=== PATIENT | female | born 1995 | race Caucasian/White ===

== ENCOUNTER 2016-12-01 13:33 | Outpatient (CLI) | payer OTHER ==
[2016-12-02 12:01] LABS: CANDIDA SPECIES DNA PROBE NEGATIVE (NEGATIVE); GARDNERELLA VAGINALIS POSITIVE (NEGATIVE); TRICHOMONAS VAGINALIS NEGATIVE (NEGATIVE)
== END 2016-12-01 13:34 ==
LOC: LAB 13:33
PROVIDERS: ATTEND Family Medicine
DX: N89.8 Other specified noninflammatory disorders of vagina (principal); N88.8 Other specified noninflammatory disorders of cervix uteri; Z12.4 Encounter for screening for malignant neoplasm of cervix
CPT/HCPCS: 87480; 87491; 87510; 87591; 88148; G0143

== ENCOUNTER 2016-12-03 03:22 | Emergency (ER) | payer OTHER ==
[2016-12-03] MEDS ORDERED: PROMETHAZINE HCL 25 MG/ML VIAL ONE (03:36)
[2016-12-03] MEDS ORDERED: 0.9 % SODIUM CHLORIDE 1,000 ML IV ONE ×3 (03:37→04:44)
[2016-12-03] MEDS ORDERED: PROMETHAZINE HCL 25 MG/ML VIAL IM ONE (03:37)
[2016-12-03] MEDS ORDERED: KETOROLAC TROMETHAMINE 30 MG/1ML VIAL ONE (04:05)
[2016-12-03] MEDS ORDERED: KETOROLAC TROMETHAMINE 30 MG/1ML VIAL IVP ONE (04:05)
--- NOTE | 2016-12-03 04:15 | ED Physician Documentation ---
General Adult - HISTORIAN Historian: patient - HPI Stated Complaint: N/V Chief Complaint: General Adult Further Comments: yes (20 year old female patient presents from [facility] with c/o nausea, vomiting and pain all over. Patient reports 2 year history of injecting Herion. Recently treated for Trich and Chlamydia. Admitted on 2016, last use on Wednesday.) - ROS CONST: no problems EYES/ENT: none CVS/RESP: none GI/: vomiting, nausea MS/SKIN/LYMPH: other ("hurts all over") NEURO/PSYCH: headache - PAST HX Past History: other (heroin abuse, STD) Allergies/Adverse Reactions: Allergies Allergy/AdvReac Type Severity Reaction Status Date / Time No Known Allergies Allergy Unverified 12/03/16 03:26 Home Medications: Ambulatory Orders Medication Instructions Recorded Buprenorphine HCl/Naloxone HCl 1 each SL AM 12/03/16 [Suboxone 8 mg-2 mg Sl Film] Buprenorphine HCl/Naloxone HCl 6 mg SL PM 12/03/16 [Suboxone 8 mg-2 mg Sl Film] Cyclobenzaprine HCl 10 mg PO TID PRN 12/03/16 Metronidazole [Metronidazole] 500 mg PO BID 12/03/16 Ondansetron HCl/Pf [Zofran 4 mg/2 4 mg IM Q6 PRN 12/03/16 ml] - SOCIAL HX Smoking History: cigarettes Drug Use: heroin - FAMILY HX Family History: No - VITAL SIGNS Vital Signs: Vital Signs Temp Pulse Resp BP Pulse Ox 98.2 F 78 18 132/82 100 12/03/16 03:22 12/03/16 03:22 12/03/16 03:22 12/03/16 03:22 12/03/16 03:22 - REVIEWED ASSESSMENTS Nursing Assessment Reviewed: Yes Vitals Reviewed: Yes Progress - Progress Progress: Extremely difficult IV start. [address] in left foot by myself. 0430 Patient sleeping on stretcher after promethazine, toradol and NS. Lab results reviewed. VS stable, discharged back to [facility] ED Results Lab/Radiology - Orders Orders: ED Orders Category Date Time Status Place IV Lock 1T Care 12/03/16 03:38 Active CBC PLATELETS NO DIFF Routine Lab 12/03/16 04:00 Received CMP [CMP] Routine Lab 12/03/16 04:00 Received 0.9 % Sodium Chloride [Normal Saline] 1,000 ml Med 12/03/16 03:37 Discontinued IV .STK-MED 0.9 % Sodium Chloride [Normal Saline] 1,000 ml Med 12/03/16 03:37 Active IV Q1H Ketorolac Tromethamine [Toradol] Med 12/03/16 04:05 Discontinued 30 mg .ROUTE .STK-MED ONE Promethazine HCl [Phenergan] Med 12/03/16 03:36 Discontinued 25 mg .ROUTE .STK-MED ONE Promethazine HCl [Phenergan] Med 12/03/16 03:37 Discontinued 25 mg IM NOW ONE General Adult Physical Exam - PHYSICAL EXAM GENERAL APPEARANCE: moderate distress EENT: eye inspection normal, FABIO RESPIRATORY: no resp distress, chest non-tender, breath sounds normal CVS: reg rate & rhythm, heart sounds normal, equal pulses, no murmur, no gallop , PMI nml, no JVD, no friction rub, 24 ABDOMEN: soft, no organomegaly, normal bowel sounds, no abdominal bruit, no distension SKIN: warm/dry, normal color, other (track jones on bilateral arms, bilateral feet, bilateral breasts and chest wall. ) EXTREMITIES: non-tender, normal range of motion, no evidence of injury, no edema , J, [employer] NEURO: oriented X3, CN's nml as tested, motor nml, sensation nml, depressed mood /affect Discharge Clincal Impression: Heroin abuse Nausea & vomiting Qualifiers: Vomiting type: unspecified Vomiting Intractability: non-intractable Qualified Code(s): R11.2 - Nausea with vomiting, unspecified Referrals: Primary Doctor,No [Primary Care Provider] - 2 Days Additional Instructions: Diet: Clear liquids Sprite/7-up Juices apple, white grape Gatorade/Powerade Jello Popsicles When tolerating clear liquids, advance to bland/brat diet - such as crackers, rice, Bananas, apples/applesauce or toast Return to the emergency department or call your doctor, if you are having severe abdominal pain, fever >101.0, or if there is blood in the vomit or diarrhea, or you cannot keep down liquids or solid food. Condition: Stable Disposition: 01 HOME, SELF-CARE Decision to Admit: NO
[2016-12-03 04:16] LABS: MEAN CORPUSCULAR HEMOGLOBIN 28.8 pg (28.0-34.0); MEAN CORPUSCULAR VOLUME 83.1 fl (80.0-100.0)
[2016-12-03 04:21] LABS: eGFR (African) > 60; eGFR (Non-African) > 60
[2016-12-03] MEDS ORDERED: ACETAMINOPHEN 500 MG TABLET PO ONE (04:44)
[2016-12-03] MEDS ORDERED: PANTOPRAZOLE SODIUM 40 MG TABLET PO ONE (06:58)
[2016-12-03 07:10] VITALS: BP 113/47
== END 2016-12-03 07:07 | disposition home or self-care (01) ==
LOC: ED 03:22
DX: F19.10 Other psychoactive substance abuse, uncomplicated (principal); R11.2 Nausea with vomiting, unspecified
CPT/HCPCS: 80053; 85027; J1885; J2550; J7030; 96361; 96372; 96374; 96375; 99283; S1016